=== PATIENT | female | born 1985 | race American Indian/Alaskan Native ===

== ENCOUNTER 2017-07-01 23:43 | Emergency (ER) | payer SELFPAY ==
[2017-07-02 01:43] LABS: Basophils % (Auto) 0.3 % (0.0-1.8); Hematocrit 36.7 % (30.3-42.9); Hemoglobin 12.5 gm/dl (10.1-14.3); Mean Corpuscular HGB Conc 34 % (30-34); Mean Corpuscular Hemoglobin 30 pg (28-32); Mean Corpuscular Volume 89 fl (79-97); Platelet Count 203 K/mm3 (140-440); Red Blood Count 4.12 M/mm3 (3.65-5.03); Red Cell Distribution Width 13.5 % (13.2-15.2); White Blood Count 9.9 K/mm3 (4.5-11.0)
[2017-07-02 01:52] LABS: INR 1.09 (0.87-1.13)
[2017-07-02 02:12] LABS: Alanine Aminotransferase 18 units/L (7-56); Albumin 4.3 g/dL (3.9-5); Albumin/Globulin Ratio 1.3 %; Alkaline Phosphatase 59 units/L (35-129); Anion Gap 17 mmol/L; BUN/Creatinine Ratio 14; Blood Urea Nitrogen 7 mg/dL (7-17); Calcium 9.7 mg/dL (8.4-10.2); Carbon Dioxide 26 mmol/L (22-30); Chloride 95.1 mmol/L (98-107); Glucose 96 mg/dL (65-100); Potassium 3.9 mmol/L (3.6-5.0); Sodium 134 mmol/L (137-145); Total Protein 7.7 g/dL (6.3-8.2)
[2017-07-02] MEDS ORDERED: NORCO 5/325 ONE (02:27)
[2017-07-02] MEDS: NORCO 5/325 PO ONE (02:28)
--- NOTE | 2017-07-02 02:30 | Emergency Department Report ---
HPI - General Chief Complaint: Fever Time Seen by Provider: 07/02/17 02:14 - HPI HPI: Room 7 The patient is a 30-year-old female presenting with a chief complaint of headache and fever. The patient states for the past 2 days she has had a constant frontal headache described as throbbing in nature. Patient states she' s had a fever 102.4F and right-sided neck pain. Patient states she didn't develop nausea and vomiting. Patient denies any URI symptoms. Patient denies any previous history of trauma. Patient denies sick contacts. Location: [See above] Duration: 2 days Quality: Throbbing Severity: 04/24 Modifying factors: [see above] Context: [see above] Mode of transportation: [not driving] ED Past Medical Hx - Past Medical History Previous Medical History?: No - Surgical History Past Surgical History?: No - Family History Family history: no significant - Social History Smoking Status: Never Smoker Substance Use Type: None (denies illicit drug use), Alcohol (occasional) - Medications Home Medications: Home Medications Medication Instructions Recorded Confirmed Last Taken Type Ibuprofen [Motrin 800 MG tab] 800 mg PO Q8HR PRN #20 tablet 07/02/17 Unknown Rx Sulfamethoxazole/Trimethoprim 1 each PO BID #14 tablet 07/02/17 Unknown Rx [Bactrim DS TAB] traMADol [Ultram] 50 mg PO Q6HR PRN #10 tablet 07/02/17 Unknown Rx ED Review of Systems ROS: Stated complaint: FEVER & HEADACHE Other details as noted in HPI Comment: All other systems reviewed and negative Constitutional: fever Eyes: denies: eye pain, eye discharge, vision change ENT: denies: ear pain, throat pain Respiratory: denies: cough, shortness of breath, wheezing Cardiovascular: denies: chest pain, palpitations Endocrine: no symptoms reported Gastrointestinal: nausea, vomiting Genitourinary: denies: urgency, dysuria, discharge Musculoskeletal: denies: back pain, joint swelling, arthralgia Skin: denies: rash, lesions Neurological: headache Psychiatric: denies: anxiety, depression Hematological/Lymphatic: denies: easy bleeding, easy bruising Physical Exam - Physical Exam Vital Signs: Vital Signs 07/02/17 01:00 Temperature 101.6 F H Pulse Rate 109 H Blood Pressure 141/97 O2 Sat by Pulse 100 Oximetry Physical Exam: GENERAL: The patient is well-developed well-nourished female lying on stretcher not appearing to be in acute distress. [] HEENT: Normocephalic. Atraumatic. Extraocular motions are intact. Patient has moist mucous membranes. NECK: Supple. There is no nuchal rigidity the patient does complain of trace right neck pain while flexing CHEST/LUNGS: Clear to auscultation. There is no respiratory distress noted. HEART/CARDIOVASCULAR: Regular. There is no tachycardia. There is no gallop rub or murmur. ABDOMEN: Abdomen is soft, nontender. Patient has normal bowel sounds. There is no abdominal distention. SKIN: There is no rash. There is no edema. There is no diaphoresis. NEURO: The patient is awake, alert, and oriented. The patient is cooperative. The patient has no focal neurologic deficits. The patient has normal speech. Cranial nerves II through XII grossly intact MUSCULOSKELETAL: There is no evidence of acute injury. ED Course Vital Signs 07/02/17 01:00 Temperature 101.6 F H Pulse Rate 109 H Blood Pressure 141/97 O2 Sat by Pulse 100 Oximetry ED Medical Decision Making - Lab Data Result diagrams: 07/02/17 01:15 07/02/17 01:07 Laboratory Tests 07/02/17 07/02/17 07/02/17 01:07 01:15 01:15 WBC 9.9 RBC 4.12 Hgb 12.5 Hct 36.7 MCV 89 MCH 30 MCHC 34 RDW 13.5 Plt Count 203 Lymph % (Auto) 12.7 L [place] % (Auto) 8.3 H Eos % (Auto) 0.0 Baso % (Auto) 0.3 Lymph # 1.3 [place] # 0.8 Eos # 0.0 Baso # 0.0 Seg Neutrophils % 78.7 H Seg Neutrophils # 7.8 H PT 14.7 INR 1.09 VBG pH Sodium 134 L Potassium 3.9 Chloride 95.1 L Carbon Dioxide 26 Anion Gap 17 BUN 7 Creatinine 0.5 L Estimated GFR > 60 BUN/Creatinine Ratio 14 Glucose 96 Lactic Acid Calcium 9.7 Total Bilirubin 0.90 AST 19 ALT 18 Alkaline Phosphatase 59 Total Protein 7.7 Albumin 4.3 Albumin/Globulin Ratio 1.3 HCG, Qual Urine Color Urine Turbidity Urine pH Ur Specific [place] Urine Protein Urine Glucose (UA) Urine Ketones Urine Blood Urine Nitrite Urine Bilirubin Urine Urobilinogen Ur Leukocyte Esterase Urine WBC (Auto) Urine RBC (Auto) U Epithel Cells (Auto) Urine Bacteria (Auto) Urine WBC Clumps Urine Mucus 07/02/17 07/02/17 07/02/17 01:15 01:15 01:15 WBC RBC Hgb Hct MCV MCH MCHC RDW Plt Count Lymph % (Auto) [place] % (Auto) Eos % (Auto) Baso % (Auto) Lymph # [place] # Eos # Baso # Seg Neutrophils % Seg Neutrophils # PT INR VBG pH 7.387 Sodium Potassium Chloride Carbon Dioxide Anion Gap BUN Creatinine Estimated GFR BUN/Creatinine Ratio Glucose Lactic Acid 0.80 Calcium Total Bilirubin AST ALT Alkaline Phosphatase Total Protein Albumin Albumin/Globulin Ratio HCG, Qual Negative Urine Color Urine Turbidity Urine pH Ur Specific [place] Urine Protein Urine Glucose (UA) Urine Ketones Urine Blood Urine Nitrite Urine Bilirubin Urine Urobilinogen Ur Leukocyte Esterase Urine WBC (Auto) Urine RBC (Auto) U Epithel Cells (Auto) Urine Bacteria (Auto) Urine WBC Clumps Urine Mucus 07/02/17 03:20 WBC RBC Hgb Hct MCV MCH MCHC RDW Plt Count Lymph % (Auto) [place] % (Auto) Eos % (Auto) Baso % (Auto) Lymph # [place] # Eos # Baso # Seg Neutrophils % Seg Neutrophils # PT INR VBG pH Sodium Potassium Chloride Carbon Dioxide Anion Gap BUN Creatinine Estimated GFR BUN/Creatinine Ratio Glucose Lactic Acid Calcium Total Bilirubin AST ALT Alkaline Phosphatase Total Protein Albumin Albumin/Globulin Ratio HCG, Qual Urine Color Yellow Urine Turbidity Clear Urine pH 7.0 Ur Specific [place] 1.008 Urine Protein <15 mg/dl Urine Glucose (UA) Neg Urine Ketones Tr Urine Blood Mod Urine Nitrite Neg Urine Bilirubin Neg Urine Urobilinogen < 2.0 Ur Leukocyte Esterase Lg Urine WBC (Auto) 93.0 H Urine RBC (Auto) 2.0 U Epithel Cells (Auto) < 1.0 Urine Bacteria (Auto) 1+ Urine WBC Clumps Few Urine Mucus Few - Radiology Data Radiology results: report reviewed (CT head), image reviewed (CT head) CT head (read by radiologist) (-mild volume loss in the posterior fossa. No acute process identified. - Medical Decision Making I explained to the patient and the patient's my concern for meningitis given the patient's complaint of severe headache and fever with slight right neck pain. Patient verbalized understanding but does not believe patient needs procedure. I explained to them my rationale for recommending an lumbar puncture given her above presentation with the patient and have decided against this procedure and are subsequently leaving AGAINST MEDICAL ADVICE - Differential Diagnosis meningitis, headache, URI Critical care attestation.: If time is entered above; I have spent that time in minutes in the direct care of this critically ill patient, excluding procedure time. ED Disposition Clinical Impression: UTI (urinary tract infection), Headache, Fever Disposition: LEFT AGAINST MED ADVICE Is pt being admited?: No Does the pt Need Aspirin: No Condition: Undetermined Instructions: Urinary Tract Infection in Women (ED), Viral Meningitis (ED) Additional Instructions: Return to the emergency department immediately should you develop worsening symptoms, fever, inability to tolerate food or liquid or any other concerns. Prescriptions: Ibuprofen [Motrin 800 MG tab] 800 mg PO Q8HR PRN #20 tablet PRN Reason: Pain Sulfamethoxazole/Trimethoprim [Bactrim DS TAB] 1 each PO BID #14 tablet traMADol [Ultram] 50 mg PO Q6HR PRN #10 tablet PRN Reason: Pain Referrals: PRIMARY CARE, [Primary Care Provider] - GARY MCCULLOUGH MD [Staff Physician] - [facility] (Dr. Black is a primary physician. Please follow up with him to be established as a patient if you do not already have a primary doctor) Time of Disposition: 04:28 (patient leaving AMA)
[2017-07-02] MEDS: PHENERGAN PO ONE (02:31)
[2017-07-02] MEDS: TYLENOL PO ONE (03:31)
[2017-07-02] MEDS: NACL 0.9% 500 ML 500 ML IV ONE (03:32)
[2017-07-02 04:11] LABS: Bacteria,Urine 1+ /HPF (Negative); Bilirubin,Urine NEG (Negative); Blood,Urine MOD (Negative); Ketones,Urine TR mg/dL (Negative); Leukocyte Esterase,Urine LG (Negative); Mucus,Urine FEW /HPF; Nitrite,Urine NEG (Negative); Protein,Urine <15 mg/dL mg/dL (Negative); Urobilinogen,Urine < 2.0 mg/dL (<2.0)
[2017-07-02 04:46] VITALS: BP 131/86
--- NOTE | 2017-07-02 10:19 | Cat Scan Report ---
FINAL REPORT EXAM: CT HEAD WO CONTRAST HISTORY: HEADACHE FEVER TECHNIQUE: Routine axial imaging was obtained of the brain without IV contrast. FINDINGS: There are no attenuation abnormalities. The ventricular system is appropriate in size and is symmetric. The posterior fossa reveals mild volume loss. The sinuses are clear. The mastoid air cells are well pneumatized. IMPRESSION: Mild volume loss in the posterior fossa. No acute process identified
== END 2017-07-02 04:30 | disposition left against medical advice (07) ==
LOC: ED 23:43
DX: N39.0 Urinary tract infection, site not specified (principal); R51 Headache; R50.9 Fever, unspecified
CPT/HCPCS: 36415; 70450; 80053; 81001; 82140; 82805; 84703; 85025; 85610; 87040; 87086; 99285; Q0169